=== PATIENT | female | born 1965 | race Caucasian/White ===

== ENCOUNTER → 2018-01-10 | Emergency (ER) | payer OTHER ==
[~2018-01-10] VITALS: Ht 152.4 cm; Wt 0.5 kg
[~2018-01-10] MED LIST: FLONASE16 GM NS; LOSARTAN POTASS50 MG; OSEL75CA PO; SINGULAIR10 MG PO; ZYRTEC10 MG PO
== END | disposition home or self-care (01) ==
LOC: ER 08:58
DX: I10 Essential (primary) hypertension (principal)

== ENCOUNTER 2018-02-20 06:32 | Outpatient (CLI) | payer OTHER | END 2018-02-20 07:28 | disposition home or self-care (01) | LOC: LAB 06:32 | DX: I11.9 Hypertensive heart disease without heart failure (principal); E78.2 Mixed hyperlipidemia ==

== ENCOUNTER 2018-04-15 15:06 | Outpatient (CLI) | payer OTHER | END 2018-04-15 16:09 | disposition home or self-care (01) | LOC: MRI 15:06 | DX: E04.1 Nontoxic single thyroid nodule (principal); E04.9 Nontoxic goiter, unspecified; M47.9 Spondylosis, unspecified | CPT/HCPCS: 72146 ==

== ENCOUNTER 2018-05-24 09:05 | Outpatient (CLI) | payer OTHER | END 2018-05-24 09:16 | disposition home or self-care (01) | LOC: MAMO-SONO 09:05 | DX: Z12.31 Encounter for screening mammogram for malignant neoplasm of breast (principal) ==

== ENCOUNTER → 2018-05-28 06:54 | Outpatient (CLI) | payer OTHER | END | disposition home or self-care (01) | LOC: LAB 06:54 | DX: E04.1 Nontoxic single thyroid nodule (principal); E03.8 Other specified hypothyroidism ==

== ENCOUNTER 2018-06-07 08:30 | Outpatient (CLI) | payer OTHER | END 2018-06-07 08:51 | disposition home or self-care (01) | LOC: SONOGRAMA 08:30 | DX: N60.11 Diffuse cystic mastopathy of right breast (principal); N60.12 Diffuse cystic mastopathy of left breast ==

== ENCOUNTER → 2018-08-28 07:10 | Outpatient (CLI) | payer OTHER | END | disposition home or self-care (01) | LOC: LAB 07:10 | DX: I11.9 Hypertensive heart disease without heart failure (principal); E78.2 Mixed hyperlipidemia ==

== ENCOUNTER 2018-10-29 08:28 | Outpatient (CLI) | payer OTHER | END 2018-10-29 08:35 | disposition home or self-care (01) | LOC: SONOGRAMA 08:28 | DX: N60.11 Diffuse cystic mastopathy of right breast (principal); N60.12 Diffuse cystic mastopathy of left breast ==

== ENCOUNTER 2018-11-22 09:45 | Outpatient (CLI) | payer OTHER | END 2018-11-22 09:51 | disposition home or self-care (01) | LOC: LAB 09:45 | DX: N18.9 Chronic kidney disease, unspecified (principal) ==

== ENCOUNTER → 2018-12-10 06:16 | Outpatient (CLI) | payer OTHER | END | disposition home or self-care (01) | LOC: LAB 06:16 | DX: D64.89 Other specified anemias (principal); E11.9 Type 2 diabetes mellitus without complications; E78.49 Other hyperlipidemia; K76.89 Other specified diseases of liver; E03.8 Other specified hypothyroidism; E83.32 Hereditary vitamin D-dependent rickets (type 1) (type 2); R29.898 Other symptoms and signs involving the musculoskeletal system ==

== ENCOUNTER 2018-12-17 07:17 | Outpatient (CLI) | payer OTHER | END 2018-12-17 07:18 | disposition home or self-care (01) | LOC: SONOGRAMA 07:17 | DX: K76.0 Fatty (change of) liver, not elsewhere classified (principal); R16.1 Splenomegaly, not elsewhere classified ==

== ENCOUNTER → 2019-04-18 07:05 | Outpatient (CLI) | payer OTHER | END | disposition home or self-care (01) | LOC: LAB 07:05 | DX: E03.8 Other specified hypothyroidism (principal); E78.2 Mixed hyperlipidemia; I11.9 Hypertensive heart disease without heart failure ==

== ENCOUNTER 2019-05-07 13:18 | Outpatient (CLI) | payer OTHER | END 2019-05-07 13:22 | disposition home or self-care (01) | LOC: MAMO-SONO 13:18 | DX: N60.11 Diffuse cystic mastopathy of right breast (principal); N60.12 Diffuse cystic mastopathy of left breast ==

== ENCOUNTER 2019-05-23 13:39 | Outpatient (CLI) | payer OTHER | END 2019-05-23 13:40 | disposition home or self-care (01) | LOC: LAB 13:39 | DX: D64.9 Anemia, unspecified (principal); E78.2 Mixed hyperlipidemia; E55.9 Vitamin D deficiency, unspecified; K76.89 Other specified diseases of liver; E03.8 Other specified hypothyroidism; E11.9 Type 2 diabetes mellitus without complications; R29.898 Other symptoms and signs involving the musculoskeletal system ==

== ENCOUNTER 2019-12-01 11:45 | Emergency (ER) | payer OTHER ==
[~2019-12-01] VITALS: Ht 170.2 cm; Wt 78.0 kg
[2019-12-01] MEDS ORDERED: ZESTRIL10 M1 PO (11:57)
== END 2019-12-01 16:52 | disposition home or self-care (01) ==
LOC: ER 11:45
DX: N73.8 Other specified female pelvic inflammatory diseases (principal); B96.4 Proteus (mirabilis) (morganii) as the cause of diseases classified elsewhere; B95.7 Other staphylococcus as the cause of diseases classified elsewhere

== ENCOUNTER 2019-12-09 15:13 | Outpatient (CLI) | payer OTHER ==
[~2019-12-09 15:13] MED LIST changes: +ZESTRIL10 M1 PO
== END 2019-12-09 15:14 | disposition home or self-care (01) ==
LOC: LAB 15:13
DX: D64.89 Other specified anemias (principal); E11.9 Type 2 diabetes mellitus without complications; E78.2 Mixed hyperlipidemia; K76.89 Other specified diseases of liver; E03.8 Other specified hypothyroidism; E55.9 Vitamin D deficiency, unspecified; R29.898 Other symptoms and signs involving the musculoskeletal system; E55.0 Rickets, active

== ENCOUNTER 2020-04-23 15:20 | Outpatient (CLI) | payer OTHER | END 2020-04-23 15:22 | disposition home or self-care (01) | LOC: MAMO-SONO 15:20 | PROVIDERS: ATTEND Surgery | DX: Z12.31 Encounter for screening mammogram for malignant neoplasm of breast (principal); N60.11 Diffuse cystic mastopathy of right breast; N60.12 Diffuse cystic mastopathy of left breast ==

== ENCOUNTER 2020-05-24 07:49 | Outpatient (CLI) | payer OTHER | END 2020-05-24 13:29 | disposition home or self-care (01) | LOC: NUCLEAR 07:49 | PROVIDERS: ATTEND Internal Medicine Sports Medicine | DX: M85.89 Other specified disorders of bone density and structure, multiple sites (principal) ==

== ENCOUNTER → 2020-05-27 07:20 | Outpatient (CLI) | payer OTHER | END | disposition home or self-care (01) | LOC: LAB 07:20 | PROVIDERS: ATTEND Internal Medicine Sports Medicine | DX: D64.89 Other specified anemias (principal); E11.9 Type 2 diabetes mellitus without complications; E78.2 Mixed hyperlipidemia; I10 Essential (primary) hypertension; E03.8 Other specified hypothyroidism; E55.9 Vitamin D deficiency, unspecified ==

== ENCOUNTER 2020-06-09 09:18 | Outpatient (CLI) | payer OTHER | END 2020-06-09 15:20 | disposition home or self-care (01) | LOC: LAB 09:18 | PROVIDERS: ATTEND General Practice | DX: Z11.1 Encounter for screening for respiratory tuberculosis (principal) ==

== ENCOUNTER → 2020-08-19 | Outpatient (CLI) | payer OTHER | END | disposition home or self-care (01) | LOC: PPH VACUNA 08:00 | DX: Z23 Encounter for immunization (principal) ==

== ENCOUNTER → 2020-12-13 07:48 | Outpatient (CLI) | payer OTHER | END | disposition home or self-care (01) | LOC: EDBD → LAB 07:48 | PROVIDERS: ATTEND Internal Medicine Sports Medicine | DX: D64.89 Other specified anemias (principal); E03.8 Other specified hypothyroidism; E11.9 Type 2 diabetes mellitus without complications; E78.2 Mixed hyperlipidemia; E55.9 Vitamin D deficiency, unspecified; I10 Essential (primary) hypertension ==

== ENCOUNTER 2021-04-26 08:07 | Outpatient (CLI) | payer OTHER | END 2021-04-26 08:20 | disposition home or self-care (01) | LOC: MAMO-SONO 08:07 | PROVIDERS: ATTEND Surgery | DX: N60.11 Diffuse cystic mastopathy of right breast (principal); N60.12 Diffuse cystic mastopathy of left breast; Z12.31 Encounter for screening mammogram for malignant neoplasm of breast ==

== ENCOUNTER → 2021-06-01 16:07 | Outpatient (CLI) | payer OTHER | END | disposition home or self-care (01) | LOC: LAB 16:07 | PROVIDERS: ATTEND Internal Medicine Sports Medicine | DX: D64.89 Other specified anemias (principal); E11.9 Type 2 diabetes mellitus without complications; E78.2 Mixed hyperlipidemia; I10 Essential (primary) hypertension; E03.8 Other specified hypothyroidism; E55.9 Vitamin D deficiency, unspecified ==

== ENCOUNTER 2021-08-19 08:00 | Outpatient (CLI) | payer OTHER | END 2021-08-19 08:30 | disposition home or self-care (01) | LOC: PPH VACUNA 08:00 | PROVIDERS: ATTEND Emergency Medicine Pediatric Emergency Medicine | DX: Z23 Encounter for immunization (principal) ==

== ENCOUNTER 2021-08-22 08:00 | Outpatient (CLI) | payer OTHER | END 2021-08-22 08:30 | disposition home or self-care (01) | LOC: PPH VACUNA 08:00 | PROVIDERS: ATTEND Emergency Medicine Pediatric Emergency Medicine | DX: Z23 Encounter for immunization (principal) ==

== ENCOUNTER 2021-10-07 08:05 | Outpatient (CLI) | payer OTHER | END 2021-10-07 08:30 | disposition home or self-care (01) | LOC: LAB 08:05 | PROVIDERS: ATTEND Emergency Medicine Pediatric Emergency Medicine | DX: Z03.818 Encounter for observation for suspected exposure to other biological agents ruled out (principal) ==